=== PATIENT | female | born 1970 | race Two or more races ===

== ENCOUNTER 2017-08-17 16:06 | Emergency (ER) | payer OTHER ==
[~2017-08-17] VITALS: Ht 165.1 cm; Wt 83.9 kg
[2017-08-17] MEDS ORDERED: WELLBUTRIN (16:27)
[2017-08-17] MEDS ORDERED: PROZAC (16:27)
[2017-08-17 16:33] LABS: *BILIRUBIN,URIN NEGATIVE (NEGATIVE); *BLOOD, URINE NEGATIVE (NEGATIVE); *CLARITY,URINE CLEAR (CLEAR); *COLOR,URINE YELLOW (YELLOW); *KETONES,URINE NEGATIVE (NEGATIVE); *PROTEIN,URINE NEGATIVE (NEGATIVE); *UROBILINOGEN,URINE 0.2 E.U./dl (NORMAL); LEUKOCYTE ESTERASE ,URINE NEGATIVE (NEGATIVE); NITRITE, URINE NEGATIVE (NEGATIVE); PH,URINE 6.5 (5.0-8.0); UGLUCOSE NEGATIVE (NEGATIVE)
[2017-08-17 16:37] LABS: *URINE HCG, QUAL NEGATIVE (NEGATIVE)
[2017-08-17 16:41] LABS: MUCUS,URINE FEW /LPF (0-FEW); RBC,URINE 0-3 /HPF (0-3); SQUAMOUS EPITHELIAL CELL,UR MODERATE /HPF (NONE SEEN); WBC,URINE 0-3 /HPF (0-3)
--- NOTE | 2017-08-17 17:07 | NUR ---
Female patient scheduler accompanied female patient for (DR HODGE).
--- NOTE | 2017-08-17 17:08 | NUR ---
Patient discharged to home in stable conditon. Written and verbal after care instructions given to patient. Patient verbalizes understanding of instructions. Information re: Herpes & urethritis given to patient. Patient will wait in ER for additional 15 min to check for allergic rxn.
[2017-08-17] MEDS ORDERED: CEFTRIAXONE 500 MG VIAL IM ONE (17:15)
[2017-08-17] MEDS ORDERED: CEFTRIAXONE 500 MG VIAL ONE (17:25)
[2017-08-17] MEDS ORDERED: LIDOCAINE HCL 2% 20 ML VIAL ONE (17:25)
== END 2017-08-17 17:20 | disposition home or self-care (01) ==
LOC: ER 16:08
DX: N34.2 Other urethritis (principal); Z88.0 Allergy status to penicillin
CPT/HCPCS: 81001; 84703; 96372; 99284; A4663; J0696; J3490

== ENCOUNTER 2018-10-13 18:24 | Emergency (ER) | payer MEDICAID ==
[~2018-10-13] VITALS: Ht 165.1 cm; Wt 79.4 kg
[~2018-10-13 18:24] MED LIST: PROZAC; WELLBUTRIN
--- NOTE | 2018-10-13 18:27 | NUR ---
PT NOT IN WAITING ROOM WHEN CALLED FOR TRIAGE.
--- NOTE | 2018-10-13 19:05 | NUR ---
Dr. Clinton at bedside for MSE.
--- NOTE | 2018-10-13 19:20 | NUR ---
Patient discharged to home in stable conditon. Written and verbal after care instructions given. Patient verbalizes understanding of instructions. WALKED OUT OF ER WITH NO DISTRESS NOTED
== END 2018-10-13 19:22 | disposition home or self-care (01) ==
LOC: ER 18:24
DX: S30.817A Abrasion of anus, initial encounter (principal); K64.9 Unspecified hemorrhoids; K59.00 Constipation, unspecified; Z79.899 Other long term (current) drug therapy; Z88.0 Allergy status to penicillin; X58.XXXA Exposure to other specified factors, initial encounter; Y93.89 Activity, other specified; Y92.89 Other specified places as the place of occurrence of the external cause; Y99.8 Other external cause status
CPT/HCPCS: A4663